=== PATIENT | male | born 1940 | race Caucasian/White ===

== ENCOUNTER 2016-08-26 16:52 | Emergency (ER) | payer MEDICARE ==
[~2016-08-26] VITALS: Ht 167.6 cm; Wt 97.3 kg
[~2016-08-26 16:52] MED LIST: ACET-171 PO; ASPI-973 PO; ASPI325T32 PO; ATEN25TA PO; CARB1TAB14 PO; CHOL200047 PO; CLOP75TA28 PO; GLPZ5T PO; LIP40 PO; LISI10TA PO; MULT-1073 PO; NITR0.4T6 SL; PANT40TA3 PO; SITA100T12 PO; UBID1CAP52 PO
[2016-08-26 17:02] VITALS: BP 112/70; PULSE 65; RESP 16; O2SAT 96
[2016-08-26 18:00] LABS: BASOPHILS % (AUTO) 0.5 % (0-3); EOSINOPHILS % (AUTO) 3.4 % (0-5); MONOCYTES % (AUTO) 9.9 % (4-12); Mean Corpuscular Hemoglobin 26.8 pg (27.0-35.0); Mean Corpuscular Volume 80.8 fL (81-100); NEUTROPHILS % (AUTO) 54.2 % (40-74); Platelet Count 217 bil/L (150-400)
--- NOTE | 2016-08-26 18:06 | ED.REPORT ---
HPI-Neurologic Deficit Date of Service August 26, 2016 ED Provider: Dr. Lopez This is a very delightful 75-year-old male who presents complaining of vertigo and low energy. He states for 4 days he has had ringing in his left ear decreased hearing headache ear pain and when he turns his head at times it is hard for him to keep his balance. He was seen at an urgent care and diagnosed with vertigo and placed on medications. The medications made him feel sleepy and today while at cardiac rehabilitation. Almost no energy whatsoever. He did not have any chest pain or shortness of breath he has not had difficulty seeing difficulty speaking moving his arms or any cerebellar symptoms beyond basic balance when he turns his head. He does not have a history of stroke but he does have a history of coronary artery disease. Nursing Notes Stated Complaint: DIZZY Chief Complaint: Neuro Symptoms/ Deficits Nursing Notes Reviewed: Yes Allergies: Coded Allergies: No Known Allergies (Verified Allergy, Unknown, 08/26/16) Scheduled Aspirin (Aspirin) 325 Mg Tablet 325 MG PO DAILY Take Aspirin 325mg one tablet daily for one month and after that start taking Aspirin 81 mg one tablet daily. Aspirin (Aspirin) 81 Mg Tablet 81 MG PO DAILY Take Aspirin 325mg one tablet daily for one month and after that start taking Aspirin 81 mg one tablet daily. Atenolol (Atenolol) 25 Mg Tablet 25 MG PO DAILY Atorvastatin (Lipitor) 40 Mg Tablet 40 MG PO DAILY Carbidopa/Levodopa 25-100 mg (Carbidopa/Levodopa 25-100 mg) 1 Each Tablet 1 TABLET PO DAILY Cholecalciferol (Vitamin D3) (Vitamin D3) 2,000 Unit Capsule 2,000 UNIT PO DAILY Clopidogrel (Clopidogrel) 75 Mg Tablet 75 MG PO DAILY Take one tablet daily at least one year because of stent placement Glipizide (Glipizide) 5 Mg Tablet 5 MG PO BID Lisinopril (Lisinopril) 10 Mg Tablet 10 MG PO DAILY Multivits-Min/FA/Lycopene/Lut (Centrum Silver Tablet) 1 Each Tablet 1 EACH PO DAILY Pantoprazole DR (Pantoprazole DR) 40 Mg Tablet.dr 40 MG PO DAILY Sitagliptin Phos (Januvia) 100 Mg Tablet 100 MG PO DAILY Ubidecarenone/Vit E Acetate (Co Q-10 100 mg Softgel) 1 Each Capsule 1 EACH PO DAILY Scheduled PRN Acetaminophen (Acetaminophen) 500 Mg Tablet 500 MG PO Q6H PRN PRN For Fever Nitroglycerin SL (Nitroglycerin SL) 0.4 Mg Tab.subl 0.4 MG SL as needed PRN PRN For Chest Pain Take one tablet under your tongue when have chest pain; you can take up to three times every 5 min; if doesn't help, please call 911. General Time Seen by Provider: 18:06 Chief Complaint Off balance Hx Obtained From: Patient Arrived By: Walk-in Sudden in Onset?: Yes Severity: Current: No pain currently Severity: Maximum: No pain Recent Healthcare: No recent doctor visit Similar Sx Previous: No Past Medical History Past Medical History Notes: Several workups for CAD, always negative Past Medical History [place] Reports: Cancer, Coronary artery disease, Diabetes mellitus, Hyperlipidemia, Hypertension Reports: Depression, GI bleed Past Surgical History Hemorrhoid Skin growth removal Cardiac Catheterization x2 Smoking History Never Smoker Social History Other Social History: Good social support Ambulatory Status Independent Review of Systems Reports: Difficulty balancing Reports: Right ear tinnitus Constitutional: Reports: Fatigue Eyes: Denies: Blurred left, Blurred right, Diplopia Respiratory: Denies: Dyspnea on exertion, Pleuritic pain Cardiovascular: Denies: Chest pain, Dyspnea on exertion, Edema GI: Denies: Abdominal pain, Nausea, Vomiting Neurologic: Reports: Dizziness, Headache, Spinning sensation, Denies: Bladder dysfunction, Change LOC, Confusion, Focal weakness, Lightheaded, Numbness, Problem walking, Shaking, Slurred speech, Syncope, Unable to speak, Vision change, Weakness Complete sys rev & neg: except as marked. Physical Exam Initial Vital Signs Vital Signs (First) Date Time Temp Pulse Resp B/P Pulse Ox O2 Delivery O2 Flow Rate FiO2 08/26/16 17:02 36.8 65 16 112/70 96 Room Air Initial VS: Reviewed Neck: Supple, Full range of motion Abdomen / GI: Soft, Non-tender Extremities: Vascular intact, Neuro intact, No swelling, No tenderness Skin: Warm, Dry, No cyanosis General/Constitutional: Awake, Alert, Cooperative Head / Eyes: Atraumatic, Normocephalic, PERRL, No nystagmus Respiratory / Chest: Atraumatic, Breath sounds NL, Breath sounds = bilat, No respiratory distress Cardiovascular: Heart rate NL, Regular rhythm, Heart sounds NL, No gallop, No murmurs, No rubs Neurologic: Oriented X3, Speech NL, No motor deficits, No sensory deficits Focal Weakness: Negative: Upper extremity L, Upper extremity R Cerebellar Dysfunction: Negative: Ataxia central, Ataxia peripheral, Finger- nose abnl Interpretation & Diagnostics Lab Results Interpretation Result Diagram: 08/26/16 1746 08/26/16 1746 Test 08/26/16 17:44 08/26/16 17:46 08/26/16 21:05 Hold Purple Top Tube Received (Received) D-Dimer 4.80mg/L FEU (<0.50) Hold Blue Top Tube Received (Received) Hold [place] Top Tube Received (Received) White Blood Count 6.0th/mm3 (3.8-10.1) Red Blood Count 5.30mil/mm3 (4.40-5.80) Hemoglobin 14.2g/dL (13.8-17.2) Hematocrit 42.8% (41.0-50.0) Mean Corpuscular Volume 80.8fL (81-100) Mean Corpuscular Hemoglobin 26.8pg (27.0-35.0) Mean Corpuscular Hemoglobin Concent 33.2% (32.0-37.0) Red Cell Distribution Width 14.3% (12.3-15.4) Platelet Count 217bil/L (150-400) Neutrophils (%) (Auto) 54.2% (40-74) Lymphocytes (%) (Auto) 31.2% (14-46) Monocytes (%) (Auto) 9.9% (4-12) Eosinophils (%) (Auto) 3.4% (0-5) Basophils (%) (Auto) 0.5% (0-3) Sodium Level 141mEq/L (134-144) Potassium Level 4.1mEq/L (3.5-5.2) Chloride Level 105mEq/L (97-108) Carbon Dioxide Level 18mmol/L (18-29) Blood Urea Nitrogen 26mg/dL (8-27) Creatinine 1.51mg/dL (0.76-1.27) Estimat Glomerular Filtration Rate 48mL/min (>59) Glucose Level 146mg/dL (60-99) Calcium Level 9.7mg/dL (8.5-10.1) Magnesium Level 1.8mg/dL (1.6-2.6) Total Bilirubin 0.5mg/dL (0.0-1.2) Aspartate Amino Transf (AST/SGOT) 18U/L (0-50) Alanine Aminotransferase (ALT/SGPT) 19U/L (0-44) Alkaline Phosphatase 91U/L (25-160) Total Protein 7.1g/dL (6.4-8.4) Albumin 4.1g/dL (3.4-5.0) Troponin T 0.010ug/L (0.0-0.011) ECG Interpretation ECG Interpretation: Normal sinus rhtyhm. Rate 61. Time: 18:32 Interpreted by: ED physician CT Head Interpretation IMPRESSION: Negative head CT Dictated by: Yusef Brody M.D. on 08/26/2016 at 19:31 Approved by: Yusef Brody M.D. on 08/26/2016 at 19:35 Study: Head CT no contrast Interpretation / Wet Read by: Interpret - Radiologist CT Chest Interpretation Impression: No acute occlusive PE. Atherosclerotic disease. Signed by Magaly Olmstead M.D. 08/26/16. 23:38 Study type: CT pulm angiogram Interpretation / Wet Read by: Interpret - Radiologist Re-Eval/Medical Decision Med Decision/Clinical Course Acute stroke very unlikely. CT normal. 4 days of vertigo symptoms with ringing in the ear. Myocardial infarction ruled out. Pulmonary embolus ruled out. I cannot explain why his d-dimer so elevated. I think that his left ear is becoming infected. There is fluid behind insulin but red. No signs of mastoiditis on the head CT. I will place him on amoxicillin and have close follow-up. I did offer hospitalization for observation and Mr. Duarte would much rather be at home. Therefore we did do serial troponins and CT scans out of the ED. He looked and felt well. He had no further symptoms and was discharged with close outpatient follow-up. Ear nose and throat and neurology referral given Mr. Aguiar was able to get up and walk without any difficulties. As long as he did not turn his head he had no symptoms. I think he should do very well with a course of antibiotics. Source of Hx: Old records Re-Evaluation/Progress #1: Time of Eval: 21:54 Patient Status: Condition improved Re-Evaluation/Progress Note: Rechecked pt. Discussed imaging results and diagnosis. Re-Evaluation/Progress #2: Time of Eval: 22:40 Patient Status: Condition improved Re-Evaluation/Progress Note: Rechecked pt. Discussed lab, imaging results and diagnosis. Informed the pt of the plan to discharge. Pt understands and agrees with plan. F/U instructions and RTER warning given. All questions addressed. Counseled Regarding: Diagnosis, Lab results, Need for follow-up, When/why to return to ED Discharge & Departure Impression: Primary Impression: Vertigo Additional Impression: Otitis media Otitis media type: suppurative Laterality: left Chronicity: acute Recurrence: not specified as recurrent Spontaneous tympanic membrane rupture: without spontaneous rupture Qualified Code: H66.002 - Acute suppurative otitis media without spontaneous rupture of ear drum, left ear Disposition: Home Discharge Condition All VS Reviewed: Yes Patient Instructions: Benign Paroxysmal Positional Vertigo (GEN), Vertigo (DC) Additional Instructions: The CAT scan of your brain was normal. The CAT scan of the chest did not show a blood clot. Your heart enzymes are normal. I suspect you have an ear infection leading to vertigo. I think the medicines they put you on made you fatigued while you were at cardiac rehabilitation. Either way no signs of heart injury. Rest tonight. Take amoxicillin twice daily for 10 days. I would like you see your doctor as well as referral your nose and throat surgeon and the referral neurologist. Call tomorrow to set up follow-up. Return if any problems or any new or worsening symptoms. Referrals: Niranjan Rabago MD (PCP) Annamarie Cervantes MD, Kevin C MD Scribe Attestation Portions of this note were transcribed by Timothy Lopez. I, , personally performed the history, physical exam and medical decision-making;I reviewed and confirmed the accuracy of the information in the transcribed note. Signed by Cordell Green. 08/27/16 13:14 copies to: Niranjan Rabago MD, Todd P DO August 26, 2016 18:06 Timothy Lopez August 26, 2016 18:24
[2016-08-26 18:33] LABS: Magnesium 1.8 mg/dL (1.6-2.6)
[2016-08-26 18:38] LABS: TROPONIN T < 0.010 ug/L (0.0-0.011)
[2016-08-26 19:13] VITALS: BP 149/71; PULSE 72; RESP 20; O2SAT 98
--- NOTE | 2016-08-26 19:42 | DRSVH ---
PROCEDURE: CT BRAIN WITHOUT CONTRAST ([id number]) INDICATIONS: gait imbalance, unsteady walking TECHNIQUE: Noncontrast 4.5 mm thick angled axial sections acquired from the foramen magnum to the vertex, with c oronal reformats. COMPARISON: [facility], CT, KUB - CT (PNL), 01/07/2011, 9:18. FINDINGS: Image quality: Excellent. CSF spaces: Basal cisterns are patent. No extra-axial fluid collections. Ventricles are normal in size and shape. Brain: No midline shift. No intracranial masses or hemorrhage. Méndez-white matter interface is norm al. Skull and face: Calvarium and visualized facial bones are intact, without suspicious lesions. Sinuses: Visualized sinuses and mastoids are clear. IMPRESSION: Negative head CT Dictated by: Yusef Brody M.D. on 08/26/2016 at 19:31 Approved by: Yusef Brody M.D. on 08/26/2016 at 19:35
[2016-08-26 21:13] VITALS: BP 148/81; PULSE 66; RESP 20; O2SAT 98
[2016-08-26] MEDS ORDERED: 0.9% Sodium Chloride 500 ML IV ONE (22:00)
[2016-08-27 00:17] VITALS: BP 150/80; PULSE 65; RESP 19; O2SAT 97
--- NOTE | 2016-08-27 10:20 | DRSVH ---
PROCEDURE: CT ANGIO CHEST PULMONARY EMBOLISM ([id number]) INDICATIONS: dizzy, near syncope, markedly elevated ddimer TECHNIQUE: After the administration of intravenous contrast, 2 mm thick sections acquired from the pulmonary api alison to the posterior costophrenic angles. 3-dimensional maximum intensity projection (MIP) coronal a nd sagittal reformats were then acquired through the thorax. For radiation dose reduction, the follo wing was used: automated exposure control, adjustment of mA and/or kV according to patient size. COMPARISON: [facility], CT, KUB - CT (PN), 01/07/2011, 9:18. FINDINGS: Image quality: Excellent. Pulmonary arteries: Pulmonary arteries are normal in size, and demonstrate no intraluminal filling d efects to suggest central pulmonary embolism. Lungs and pleura: 6 mm left lower lobe nodule is present, unchanged compared to 01/07/11 and likely b enign. No pleural effusions or pneumothorax. Central and peripheral airways are patent. Mediastinum: Heart size is borderline prominent, without pericardial effusion. No mediastinal or hi lar adenopathy. Thoracic aorta is normal in caliber and enhancement. Esophagus is normal in caliber , without hiatal hernia. Bones and chest wall: No suspicious bony lesions. Ribs and thoracic spine appear intact throughout. Thyroid gland is unremarkable. No axillary or supraclavicular adenopathy. Abdomen: Visualized upper abdominal solid organs appear normal in the early arterial phase of enhanc ement. IMPRESSION: 1. No evidence of pulmonary embolism. 2. No effusions or consolidations. Dictated by: Marsha Morris M.D. on 08/27/2016 at 10:03 Approved by: Marsha Morris M.D. on 08/27/2016 at 10:18
== END 2016-08-27 00:10 | disposition home or self-care (01) ==
LOC: SED 16:52
DX: R42 Dizziness and giddiness (principal); H66.002 Acute suppurative otitis media without spontaneous rupture of ear drum, left ear; I11.9 Hypertensive heart disease without heart failure; E11.59 Type 2 diabetes mellitus with other circulatory complications; I25.10 Atherosclerotic heart disease of native coronary artery without angina pectoris; I25.2 Old myocardial infarction; E78.5 Hyperlipidemia, unspecified; F32.9 Major depressive disorder, single episode, unspecified; Z95.5 Presence of coronary angioplasty implant and graft; Z79.82 Long term (current) use of aspirin
CPT/HCPCS: 36415; 70450; 71275; 80053; 82948; 83735; 84484; 85025; 85378; 93005; 96360; 99285; J7040; Q9967